=== PATIENT | male | born 1945 | race Caucasian/White ===

== ENCOUNTER → 2017-03-31 | Outpatient (CLI) | payer MEDICARE, BC ==
[2017-03-31 13:36] LABS: ALBUMIN 4.1 g/dL (3.4-5.0); ALBUMIN/GLOBULIN RATIO 1.2 (1.0-1.7); CALCIUM 9.3 mg/dL (8.5-10.1); CREATININE 0.9 mg/dL (0.7-1.3); GFR 82.7; POTASSIUM 4.1 mmol/L (3.5-5.1); TOTAL BILIRUBIN 0.6 mg/dL (0.2-1.0); TOTAL PROTEIN 7.6 g/dL (6.4-8.2)
[2017-03-31] MEDS: IOHEXOL 300 MG/ML 75 ML VIAL. IV ONE (13:45)
--- NOTE | 2017-03-31 14:27 | RAD ---
CTA of the abdomen and pelvis Clinical indications: Aneurysm. Follow-up study. Comparison: Sonogram dated May 23, 2016. Technique: Noncontrast axial localizer was performed. After IV infusion of 90 cc of Omnipaque 300, helical CT scanning of the abdomen and pelvis was performed. Using a MIP algorithm, 3-D reconstructed angiogram of the abdomen and pelvis performed. No GI contrast was administered. This may decrease the sensitivity to detect GI tract pathology. PQRS Compliance Statement: One or more of the following individualized dose reduction techniques were utilized for this examination: 1. Automated exposure control 2. Adjustment of the mA and/or kV according to patient size 3. Use of iterative reconstruction technique Findings: The liver and pancreas are normal. The spleen is not enlarged. The gallbladder is normal and no biliary ductal dilatation is seen. No adrenal mass is evident. Bilateral renal cysts are seen. A cyst of the lower pole of the left kidney is large measuring 7.1 cm. There is curvilinear calcification and septation within the lateral aspect of the cyst. The septation measures less than 2 mm in thickness. No hydronephrosis or hydroureter is seen. No enlarged abdominal or pelvic lymphadenopathy is seen. A right inguinal hernia is seen containing anterior right lateral wall of the urinary bladder. Left inguinal hernia is seen containing only fat. Urinary bladder wall is smooth otherwise. Sigmoid diverticulosis is seen without diverticulitis. The appendix is normal. However, the tip of the appendix is seen extending into the right inguinal hernia sac as well. A loop of small bowel is seen extending near the opening of the right inguinal canal. No bowel obstruction is evident. No free fluid or free air or mesenteric inflammatory change is seen. An infrarenal abdominal aortic aneurysm is seen. Aneurysm measures 5.7 cm in AP dimension and 5.7 cm in transverse dimension. On the previous sonogram, the AP and transverse dimensions were 4.8 cm and 4.7 respectively. Therefore, has been a mild increase in size of the aneurysm. Aneurysm measures 9.1; length. It measured 7.3 cm in length on the previous study. Aneurysm extends down to the aortic bifurcation. There is mild dilatation of the right common iliac artery measuring up to 17 mm in caliber. No periaortic soft tissue thickening or fluid is evident. No extravasation of contrast material is seen. Normal enhancement of the celiac artery and superior mesenteric artery and inferior mesenteric artery and both main renal arteries is seen. There is calcified plaque formation within the iliac arteries bilaterally. In addition, there is soft plaque formation within the left external iliac artery which narrows the lumen by 50%. No lung base consolidation is seen. No osteolytic process is seen. IMPRESSION: Infrarenal mid and distal abdominal aortic aneurysm measuring up to 5.7 cm in greatest AP or transverse dimension and 9.1 cm in length. There has been a mild increase in size of the aneurysm since a previous sonogram dated May 23, 2016. 50% stenosis of the left external iliac artery. Complex Bosniak type II cyst of the lower pole of the left kidney. Curvilinear calcified septation. The cyst measures 7.1 cm in size and measured 6.7 cm in size on the previous sonogram. Continued abdomen CT with IV contrast follow-up in one year is recommended. Bilateral inguinal hernias. On the right side, the hernia sac contains fat and a small segment of the anterior right lateral wall of the urinary bladder and the tip of the appendix. A loop of small bowel is seen extending near the right inguinal canal opening. The left inguinal hernia contains only fat.
== END | disposition home or self-care (01) ==
LOC: CT 12:41
PROVIDERS: ATTEND Nurse Practitioner
DX: I71.4 Abdominal aortic aneurysm, without rupture (principal); K40.20 Bilateral inguinal hernia, without obstruction or gangrene, not specified as recurrent; I10 Essential (primary) hypertension; E78.5 Hyperlipidemia, unspecified
CPT/HCPCS: 36415; 74174; 80053; Q9967; 80061

== ENCOUNTER → 2017-06-02 | Outpatient (CLI) | payer MEDICARE, BC ==
[~2017-06-02] MED LIST: IOHEXOL 300 MG/ML 75 ML VIAL. IV ONE
--- NOTE | 2017-06-03 09:04 | RAD ---
CTA of the abdomen and pelvis with contrast 06/02/2017 Clinical history: Recent placement of a stent across abdominal aortic aneurysm one month ago. Technique: After the intravenous administration of 75 cc of Omnipaque 300, contiguous, 0.625 mm axial sections were obtained through the abdomen and pelvis. Multiplanar 3-D MIP and volume rendered 3-D reconstructed images were obtained. One or more of the following individualized dose reduction techniques were utilized for this study: 1. Automated exposure control. 2. Adjustment of the mA and/or kV according to patient size. 3. Use of iterative reconstruction technique. Findings: Comparison study is dated 03/31/2017. Images through the lung bases demonstrate minimal dependent subsegmental atelectasis bilaterally. The liver, spleen, pancreas, and adrenal glands are within normal limits. Low-attenuation lesions are seen scattered throughout both kidneys. These measure 1 cm to 6.5 cm in size. They likely represent cysts. They are unchanged. No free fluid or free air is seen within the abdomen. The gallbladder is well-distended. There is no evidence of bowel obstruction. Images through the pelvis demonstrate the urinary bladder distended with urine. There are small fat-containing bilateral inguinal hernias, right greater than left. No free fluid is seen. The osseous structures are unchanged. CTA images demonstrate interval placement of stent graft into the abdominal aorta. This extends from just below the level of the renal arteries into the distal common iliac arteries bilaterally. It is traversing abdominal aortic aneurysm which measures 5.7 cm in greatest transverse diameter. This has not significantly changed in size. The aneurysm sac is largely filled with mural thrombus. Enhancement is seen within the periphery of the aneurysm sac in its proximal portion. This appears to be due to aneurysm sac filling from the inferior mesenteric artery and a left lumbar artery (axial images 109 through 119). These findings are consistent with a type II endoleak. The origins of the celiac trunk, superior mesenteric artery, and both renal arteries are patent. Scattered atherosclerotic plaque formation is seen involving the external/internal iliac arteries and branches. No hemodynamically significant stenosis or occlusion is seen. Impression: A stent graft has been placed transversing the abdominal aortic aneurysm. 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
== END | disposition home or self-care (01) ==
LOC: CT 12:37
PROVIDERS: ATTEND Nurse Practitioner
DX: I71.4 Abdominal aortic aneurysm, without rupture (principal); K40.90 Unilateral inguinal hernia, without obstruction or gangrene, not specified as recurrent; J98.11 Atelectasis; K82.8 Other specified diseases of gallbladder; N32.89 Other specified disorders of bladder; I70.0 Atherosclerosis of aorta; I10 Essential (primary) hypertension; Z87.891 Personal history of nicotine dependence; Z95.5 Presence of coronary angioplasty implant and graft
CPT/HCPCS: 74174; Q9967

== ENCOUNTER → 2017-10-27 | Outpatient (CLI) | payer MEDICARE, BC ==
[2017-10-27 12:29] LABS: ALBUMIN 3.9 g/dL (3.4-5.0); ALBUMIN/GLOBULIN RATIO 1.1 (1.0-1.7); CALCIUM 9.2 mg/dL (8.5-10.1); CREATININE 0.9 mg/dL (0.7-1.3); GFR 82.7; TOTAL BILIRUBIN 0.4 mg/dL (0.2-1.0); TOTAL PROTEIN 7.6 g/dL (6.4-8.2)
== END | disposition home or self-care (01) ==
LOC: LAB 11:37
PROVIDERS: ATTEND Nurse Practitioner
DX: E78.5 Hyperlipidemia, unspecified (principal); I10 Essential (primary) hypertension; Z87.891 Personal history of nicotine dependence
CPT/HCPCS: 36415; 80053; 80061

== ENCOUNTER 2021-10-13 01:11 | Emergency (ER) | payer MEDICARE, BC ==
[~2021-10-13] VITALS: Ht 172.7 cm; Wt 100.0 kg
[2021-10-13 01:31] VITALS: BP 159/90
--- NOTE | 2021-10-13 01:44 | PHYS DOC ---
Adult General Chief Complaint Chief Complaint: EYE PROBLEMS HPI HPI Patient is an otherwise healthy 75-year-old male onset of hypertension who presents to the emergency department with redness of the left eye. Denies any pain or vision loss. Denies any recent travels, traumas, illnesses, fevers, chest pain, shortness of breath, abdominal pain, nausea, vomiting. States the only thing he can think of is he did have a coughing spell today and noticed this redness in his eyes about 2 hours ago. States he is never had anything like this before. Review of Systems Review of Systems Review of systems otherwise unremarkable except noted in HPI Allergies Allergies Allergies Coded Allergies Type Severity Reaction Last Updated Verified No Known Drug Allergies 11/12/13 No Physical Exam Physical Exam Constitutional: Well developed, well nourished, no acute distress, non-toxic appearance. [] HENT: Normocephalic, atraumatic, bilateral external ears normal, oropharynx moist, no oral exudates, nose normal. [] Eyes: PERRLA, EOMI, left-sided medial conjunctival hemorrhage, no discharge, no change in vision. [] Neck: Normal range of motion, no tenderness, supple, no stridor. [] Cardiovascular:Heart rate regular rhythm, no murmur [] Lungs & Thorax: Bilateral breath sounds clear to auscultation [] Neurologic: Alert and oriented X 3, normal motor function, normal sensory function, no focal deficits noted, cranial nerves intact, able to sit, stand and walk without issue. [] Psychologic: Affect normal, judgement normal, mood normal. [] EKG EKG [] Radiology/Procedures Radiology/Procedures [] Heart Score C/O Chest Pain: No Risk Factors: Risk Factors: DM, Current or recent (<one month) smoker, HTN, HLP, family history of CAD, obesity. Risk Scores: Risk Factors: DM, Current or recent (<one month) smoker, HTN, HLP, family history of CAD, obesity. Course & Med Decision Making Course & Med Decision Making Patient is a 75-year-old male who presents with left-sided conjunctival hemorrhage Vital signs notable for hypertension. Physical exam noted above. Patient states he has been taking his blood pressure medicine as prescribed except for tonight Discussed differential diagnosis including conjunctival hemorrhage. Gave contact information for local tennis ball cover cementer. Advised to call both his primary care physician and the tennis ball cover cementer first thing Friday. Gave strict return precautions to the ED. Patient grateful, verbalized understanding and agreed with plan of discharge. [] Dragon Disclaimer Dragon Disclaimer This electronic medical record was generated, in whole or in part, using a voice recognition dictation system. Departure Departure: Impression: Primary Impression: Conjunctival hemorrhage Disposition: HOME / SELF CARE / HOMELESS Condition: GOOD Referrals: PABLITO HOOVER MD (PCP) Additional Instructions: Thank you for coming into the emergency department tonight and allowing us to take care of you. As we discussed, it appears you have a conjunctival hemorrhage. It is very important that you contact your primary care physician on Friday as well as an tennis ball cover cementer. Please discuss your conjunctival hemorrhage with your primary care physician and see if he recommends a local tennis ball cover cementer otherwise you can call the eye doctors here in [place] at 8 AM Friday at [phone]. Please come back to the emergency department immediately with new or concerning symptoms as we discussed. CASIMIRO PINEDA MD Oct 13, 2021 01:44
== END 2021-10-13 01:47 | disposition home or self-care (01) ==
LOC: ER 01:11
DX: H11.32 Conjunctival hemorrhage, left eye (principal)
CPT/HCPCS: 99281